=== PATIENT | female | born 1945 | race Caucasian/White ===

== ENCOUNTER → 2021-01-29 | Outpatient (CLI) | payer MEDICARE, OTHER ==
--- NOTE | 2021-01-29 14:55 | RAD ---
PROCEDURE: MG DIGITAL BILAT DIAGNOSTIC MAMMO WITH VENANCIO HISTORY: The patient is 76 years old and is seen for Reason: LEFT LATERAL BREAST PAIN / Spl. Instruct ions: / History: . COMPARISON: January 15, 2018 TECHNIQUE: CC and MLO views of both breasts were obtained. Images were processed by the [employer] computer-aided detection system. DENSITY: There are scattered fibroglandular densities. FINDINGS: Left mammogram: Well-circumscribed mass within the left outer breast, unchanged compared to 2018. Pietro ign-appearing calcifications. Right mammogram: Benign-appearing calcifications. No suspicious macrocalcification, mass or ui architect ural distortion. IMPRESSION: Stable bilateral mammograms. Recommend annual screening mammograms per [employer] guidelines. She will be due in one year. BI-RADS category 2 Benign Patient entered into a reminder system for annual screening mammogram. Electronically signed by: Gurmeet Calixto DO (01/29/2021 2:53 PM) [id number]
--- NOTE | 2021-01-29 14:59 | RAD ---
US CHEST History:Reason: Left Lateral Chest pain / Spl. Instructions: / History: Comparison: None Technique: Sonographic examination of the left lateral chest wall posterior to the breast. Findings: No ultrasound evidence of mass, fluid collection or lymphadenopathy. Impression: 1. No ultrasound evidence of abnormality within the left lateral chest wall corresponding with patie nt's palpable concern. Recommend continued clinical follow-up. Electronically signed by: Gurmeet Calixto DO (01/29/2021 2:57 PM) [id number]
== END ==
LOC: MAMMO 13:39
PROVIDERS: ATTEND Nurse Practitioner Family
DX: N64.4 Mastodynia (principal)
CPT/HCPCS: 76604; 77066; G0279; 77062